=== PATIENT | male | born 1970 | race Caucasian/White ===

== ENCOUNTER 2022-08-24 17:31 | Emergency (ER) | payer OTHER, SELFPAY ==
[2022-08-24 17:38] VITALS: BP 147/96; PULSE 77; RESP 16; TEMP 37.2; O2SAT 99
--- NOTE | 2022-08-24 17:59 | ECG_ITS ---
Measurements Intervals [place] Rate: 65 P: 41 MA: 172 QRS: 17 QRSD: 90 T: 45 QT: 369 QTc: 385 Interpretive Statements SINUS RHYTHM Normal electrocardiogram NO PREVIOUS ECG AVAILABLE FOR COMPARISON Electronically Signed On 08-25-2022 19:53:42 DIRECTOR PHONE by Travis Arevalo M.D.
--- NOTE | 2022-08-24 18:56 | ED.CHESTPAIN ---
HPI - Chest Pain General Chief Complaint: Chest Pain Stated Complaint: CHEST PAIN Time Seen by Provider: 08/24/22 17:40 Source: patient Mode of arrival: ambulatory Limitations: no limitations History of Present Illness HPI narrative: Mr. Collazo is a 51-year-old male patient presenting to the clinic today with complaints of left-sided /midsternal chest pain x1 hour. He reports that the pain is a dull ache. He states that he was working around the house but no heavy lifting when this pain occurred. Says he has been under a lot of stress here in lately as some of his family members have some medical problems. He denies any history of any cardiac problems however he has had a history of pulmonary hypertension but he has seen a excel developer for this and thinks that he may have been misdiagnosed. He is a former smoker states he smoked for 15 years about half pack per day. No history of hypertension or diabetes. Feeling medication he is currently taking as terbinafine for toenail fungus. He reports some mild shortness of breath with the pain but denies any radiation of the pain. He denies any upper respiratory symptoms, headache, or dizziness. Denies any fever or chills. Denies any change in pain with respirations. Reports he was lifting and moving some scrap metal yesterday. Related Data Home Medications Medication Instructions Recorded Confirmed terbinafine HCl 250 mg tablet 250 mg PO DAILY 08/24/22 08/24/22 Allergies Allergy/AdvReac Type Severity Reaction Status Date / Time No Known Allergies Allergy Verified 08/24/22 17:54 Review of Systems Review of Systems: Pertinent positives per HPI. Patient denies any fever, chills, rash, headache, visual changes, dizziness, cough, runny nose, sore throat, shortness of breath, chest pain, palpitations, nausea, vomiting, diarrhea, constipation, abdominal pain, or any urinary issues. [facility] Past Medical History Medical History Cellulitis of right lower extremity Elevated blood pressure reading Encounter for screening for cardiovascular disorders Fatigue Lumbar back pain Obesity, unspecified Other diseases of lung, not elsewhere classified Other psoriasis and similar disorders Pulmonary hypertension Sacroiliitis, not elsewhere classified Syncope and collapse Tobacco use Varicose veins of both lower extremities Vitamin D deficiency disease Family History Family History Father Diabetes mellitus Family history of hypercholesterolemia Mother Family history of hypercholesterolemia Other Hypertension Social History Social History Smoking status: Former smoker Smoking end date: 09/03/17 Comments At the time of my signature, I reviewed and agree with the nursing past medical, surgical, social, and family history. There is no relevant family history pertinent to the patient complaint. Exam Narrative: General: Well-developed, well nourished, in no apparent distress Head: Normocephalic, atraumatic. Chest: Even rise and fall of chest wall, no bruising or swelling noted, mild tenderness to palpation over the left upper chest wall Cardio: Regular rate and rhythm, s1 and s2 normal, no murmur appreciated. Resp: Clear to auscultation bilaterally, no rhonchi, rales, wheezing or rubs. Extremities: No deformity, no edema, no cyanosis, capillary refill less than 2 seconds, peripheral pulses palpable and strong. Integumentary: [place], warm, and dry, intact without lesion, no rashes. Course Course Emergency Course: Portions of this record may have been created with voice recognition software. Level of Care: Express Care Visit Vital Signs Vital signs: Vital Signs Temperature 37.2 C 08/24/22 17:38 Pulse Rate 77 08/24/22 17:38 Respiratory Rate 16 08/24/22 17:38 Blood Pressure
== END 2022-08-24 18:29 | disposition short-term general hospital (02) ==
PROVIDERS: Emergency Provider Nurse Practitioner Family; PCP Emergency Medicine
DX: R07.9 Chest pain, unspecified (principal); Z87.891 Personal history of nicotine dependence; E66.9 Obesity, unspecified; Z68.29 Body mass index [BMI] 29.0-29.9, adult
CPT/HCPCS: 93005; 99213; G0463

== ENCOUNTER 2022-08-24 18:45 | Emergency (ER) | payer OTHER, SELFPAY ==
--- NOTE | ~2022-08-24 | XR_ITS ---
XR chest 2V DATE: 08/24/2022 19:30 INDICATION: Chest pain TECHNIQUE: PA and lateral views COMPARISON: None FINDINGS: There is moderately prominent dextroscoliosis of the mid and lower thoracic spine. There is degenerative spurring of the thoracic spine. Levoscoliosis and degenerative change of the lumbar spi ne Normal heart size. No hilar or mediastinal enlargement. No pulmonary infiltrate or consolidation, pleural effusion or pulmonary vascular congestion or pneumo thorax. IMPRESSION: No active cardiopulmonary disease Scoliosis and degenerative change of the thoracic and lumbar spine Reviewed, dictated and finalized at location A. [employer]EL[employer]
--- NOTE | 2022-08-24 18:47 | ECG_ITS ---
Measurements Intervals [place] Rate: 65 P: 37 GA: 175 QRS: -5 QRSD: 108 T: 24 QT: 388 QTc: 405 Interpretive Statements SINUS RHYTHM BASELINE ARTIFACT NOTED GROSSLY NORMAL ECG COMPARED TO ECG 08/24/2022 17:56:20 NO SIGNIFICANT CHANGE Electronically Signed On 08-25-2022 19:54:51 BALLISTICS PROFESSOR by Travis Arevalo M.D.
[2022-08-24 18:48] VITALS: BP 166/85; PULSE 65; RESP 16; TEMP 36.4; O2SAT 100
[2022-08-24 19:03] LABS: Basophils Percent Auto 0.6 % (0.2-1.2); Eosinophils Absolute Auto 0.2 K/mm3 (0-0.3); Eosinophils Percent Auto 3.3 % (0-4.4); Hematocrit 40.6 % (42.0-52.0); Hemoglobin 14.2 g/dL (14.0-18.0); Immature Granulocyte Absolute 0.04 K/mm3 (0.00-0.031); Immature Granulocyte Percent A 0.8 % (0-0.5); Lymphocytes Absolute Auto 1.56 K/mm3 (0.9-3.2); Lymphocytes Percent Auto 30.7 % (18.3-44.2); Mean Corpuscular Hemoglobin 31.3 pg (26-34); Mean Corpuscular Volume 89.4 fl (80-100); Mean Platelet Volume 8.8 fl (7.4-10.4); Monocytes Absolute Auto 0.4 K/mm3 (0.1-0.6); Monocytes Percent Auto 6.9 % (2.6-8.5); Neutrophils Absolute Auto 2.9 K/mm3 (1.3-6.7); Neutrophils Percent Auto 57.7 % (45.5-73.1); Platelet Count Result 238 k/mm3 (150-375); Red Blood Count 4.54 M/mm3 (4.6-6.20); Red Cell Distribution Width 11.9 % (11.5-14.5); White Blood Count 5.1 K/mm3 (4.5-10.0)
[2022-08-24 19:14] LABS: Alanine Aminotransferase 30 U/L (6-50); Albumin Level 4.7 g/dL (3.5-5.1); Alkaline Phosphatase 78 U/L (38-126); Anion Gap 5 mmol/L (8-16); Aspartate Amino Transferase 33 U/L (17-59); Bilirubin,Total 0.3 mg/dL (0.2-1.3); Blood Urea Nitrogen 8 mg/dL (9-20); Carbon Dioxide 30 mmol/L (22-30); Chloride 99 mmol/L (98-107); Estimated CRCL calculation 121 ml/min; Estimated Glomerular Filt Rate > 60; Glucose 100 mg/dL (65-110); Lipase 85 U/L (23-300); Potassium 3.9 mmol/L (3.4-5.0); Sodium 134 mmol/L (137-145)
--- NOTE | 2022-08-24 19:18 | ED.CHESTPAIN ---
HPI - Chest Pain General Chief Complaint: Chest Pain Stated Complaint: chest pain Time Seen by Provider: 08/24/22 19:16 Source: patient Mode of arrival: ambulatory Limitations: no limitations History of Present Illness HPI narrative: 51 years old white female [place] emergency [place] left upper chest pressure type discomfort started while shopping. Patient denies radiation of pain, shortness of breath, lightheadedness, dizziness or back pain. Patient is healthy otherwise, not on any medications, does not smoke or uses drugs, drinks occasionally, no family history of coronary artery disease. Patient reports quite a bit of stress/anxiety lately. 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 Patient denies aggravating or relieving factors. He denies any fever, chills, nausea, vomiting. Chest pain started at 3 PM, was 5 out of 10, currently 2 out of 10. I saw the patient 4-1/2-hour after the beginning of his symptoms Related Data Home Medications Medication Instructions Recorded Confirmed terbinafine HCl 250 mg tablet 250 mg PO DAILY 08/24/22 08/24/22 Allergies Allergy/AdvReac Type Severity Reaction Status Date / Time No Known Allergies Allergy Verified 08/24/22 17:54 Review of Systems Review of Systems: All systems reviewed & are unremarkable except as noted in HPI and below PMFSH Past Medical History Medical History Cellulitis of right lower extremity Elevated blood pressure reading Encounter for screening for cardiovascular disorders Fatigue Lumbar back pain Obesity, unspecified Other diseases of lung, not elsewhere classified Other psoriasis and similar disorders Pulmonary hypertension Sacroiliitis, not elsewhere classified Syncope and collapse Tobacco use Varicose veins of both lower extremities Vitamin D deficiency disease Family History Family History Father Diabetes mellitus Family history of hypercholesterolemia Mother Family history of hypercholesterolemia Other Hypertension Social History Social History Smoking status: Former smoker Smoking end date: 09/03/17 Exam Narrative: General appearance: Well-developed, well-nourished Skin: Normal color Head: Normocephalic, nontraumatic Eyes: Clear conjunctiva ENT: Oropharynx normal, ears normal, nose normal Neck: Supple, nontender Chest and respiratory: Airway patent, no respiratory distress, no accessory muscle use, mild tenderness to left upper chest with palpation, no bruises, no swelling or rash Heart: Regular rate/rhythm Abdomen: Soft, nontender, no organomegaly, quiet bowel sounds Vascular: Normal peripheral pulses, normal capillary refill. 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 Work-up today showed no significant finding to explain patient condition, anxiety related symptoms is my concern. Vital Signs Vital signs: Vital Signs Temperature 36.4 C L 08/24/22 18:48 Pulse Rate 65 08/24/22 18:48 Respiratory Rate 16 08/24/22 18:48 Blood Pressure 166/85 H 08/24/22 18:48 Pulse Oximetry 100 08/24/22 18:48 Oxygen Delivery Room Air 08/24/22 18:48 Temperature 36.8 C 08/24/22 20:55 Pulse Rate 59 L 08/24/22 20:55 Respiratory Rate 18 08/24/22 20:55 Blood Pressure 142/67 H 08/24/22 20:55 Pulse Oximetry 99 08/24/22
[2022-08-24 19:21] LABS: INR 0.9; Prothrombin Time 12.2 Seconds (11.1-14.7)
[2022-08-24 19:23] LABS: Partial Thromboplastin Time 27.7 SECONDS (22.3-36.8)
[2022-08-24 19:25] LABS: Troponin I < 0.012 ng/mL (0.000-0.034)
[2022-08-24] MEDS: ASPIRIN 81 MG CHEWABLE TABLET 324 MG PO (19:34)
[2022-08-24 20:55] VITALS: BP 142/67; PULSE 59; RESP 18; TEMP 36.8; O2SAT 99
[2022-08-24] MEDS: LORazepam INJ (*CRX) 2 MG/ML VIAL 1 MG IV PUSH (21:14)
[2022-08-24 22:51] LABS: Troponin I < 0.012 ng/mL (0.000-0.034)
== END 2022-08-24 23:10 | disposition home or self-care (01) ==
PROVIDERS: Emergency Medicine; Emergency Provider Emergency Medicine; PCP Emergency Medicine
DX: R07.89 Other chest pain (principal); F41.9 Anxiety disorder, unspecified; E66.9 Obesity, unspecified; Z68.33 Body mass index [BMI] 33.0-33.9, adult; I27.20 Pulmonary hypertension, unspecified; E55.9 Vitamin D deficiency, unspecified; Z87.891 Personal history of nicotine dependence; M41.9 Scoliosis, unspecified; M47.814 Spondylosis without myelopathy or radiculopathy, thoracic region; M47.816 Spondylosis without myelopathy or radiculopathy, lumbar region
CPT/HCPCS: 36415; 71046; 80053; 83690; 84484; 85025; 85610; 85730; 93005; 96374; 99284; A9270; J2060

== ENCOUNTER → 2023-04-30 11:33 | Outpatient (CLI) | payer OTHER, SELFPAY ==
--- NOTE | ~2023-04-30 | XR_ITS ---
Right Shoulder Technique: AP and axillary views were obtained. Clinical History: Pain Findings: No fracture or dislocation is seen. Osseous alignment is anatomic. The glenohumeral and acr omioclavicular joint spaces are preserved. Soft tissues are unremarkable. Impression: Unremarkable right shoulder radiographs. Reviewed, dictated and finalized at [facility]. Impression: Unremarkable right shoulder radiographs.
== END ==
PROVIDERS: PCP Emergency Medicine; Visit Provider Emergency Medicine
DX: M25.511 Pain in right shoulder (principal)
CPT/HCPCS: 73030

== ENCOUNTER 2023-07-03 10:39 | Emergency (ER) | payer OTHER, SELFPAY ==
--- NOTE | 2023-07-03 10:41 | ED.DENTAL ---
HPI - Dental/Oral General Chief complaint: Dental/Oral Stated complaint: Rt Facial Pain Time Seen by Provider: 07/03/23 10:41 Source: patient Mode of arrival: ambulatory Limitations: no limitations History of Present Illness HPI Narrative: Mr. Collazo is a 52-year-old male patient presenting to the clinic today with complaints of right lower dental pain x2 days. He reports he attempted to get into his dentist but cannot get in for a couple weeks. Is concerned that he may have a dental infection. No fever or chills. Related Data Allergies Allergy/AdvReac Type Severity Reaction Status Date / Time No Known Allergies Allergy Verified 02/21/23 14:59 Review of Systems Review of Systems: Pertinent positives per HPI. Patient denies any fever, chills, rash, headache, visual changes, dizziness, cough, runny nose, sore throat, shortness of breath, chest pain, palpitations, nausea, vomiting, diarrhea, constipation, abdominal pain, or any urinary issues. PMFSH Past Medical History Medical History Cellulitis of right lower extremity Elevated blood pressure reading Encounter for screening for cardiovascular disorders Fatigue Lumbar back pain Obesity, unspecified Other diseases of lung, not elsewhere classified Other psoriasis and similar disorders Pulmonary hypertension Sacroiliitis, not elsewhere classified Syncope and collapse Tobacco use Varicose veins of both lower extremities Vitamin D deficiency disease Family History Family History Father Diabetes mellitus Family history of hypercholesterolemia Mother Family history of hypercholesterolemia Other Hypertension Social History Social History Smoking status: Former smoker Smoking end date: 09/03/17 Alcohol intake: current Alcohol use details: occasionally Comments At the time of my signature, I reviewed and agree with the nursing past medical, surgical, social, and family history. There is no relevant family history pertinent to the patient complaint. Exam Narrative: General: Well-developed, well nourished, in no apparent distress Head: Normocephalic, atraumatic Eyes: Pupils equally round and reactive to light bilaterally, EOM intact, sclera and conjunctive clear, no discharge, lids normal Ears: TMs intact and clear, ear canals clear, no drainage, grossly hearing normal. Nose: Nares patent, no discharge, no inflammation, no sinus tenderness. Mouth: Oropharynx without lesions or masses, poor dentition, MMM. Dental pain to right lower 1st molar-1st molar is fractured, redness and swelling noted to the gums Neck: Supple, trachea midline, no enlargement of anterior or posterior cervical nodes, no thyroid masses or goiter palpable. Cardio: Regular rate and rhythm, s1 and s2 normal, no murmur appreciated. Resp: Clear to auscultation bilaterally anteriorly and posteriorly, no rhonchi, rales, wheezing or rubs Course Course Emergency Course: Portions of this record may have been created with voice recognition software. Level of Care: Express Care Visit Vital Signs Vital signs: Vital signs reviewed MDM - Dental/Oral MDM Narrative Medical decision making narrative: At the time of visit patient is resting comfortably on the exam table. I suspect patient has a possible dental infection. Will send in prescription for amoxicillin and discussed use of Tylenol Motrin as needed for pain. Supportive measures were discussed with the patient he voiced understanding discharge instructions and agrees to treatment plan. Differential Diagnosis Differential diagnosis: Likely gingival abscess, dental caries, toothache, dental abscess and fracture of tooth Discharge Plan Discharge Clinical Impression: Pain, dental Patient Disposition: Hospice - Home Condition: Stable In
[2023-07-03 10:51] VITALS: BP 177/94; PULSE 68; RESP 18; TEMP 36.1; O2SAT 100
== END 2023-07-03 11:01 | disposition home or self-care (01) ==
PROVIDERS: Emergency Provider Nurse Practitioner Family; PCP Emergency Medicine
DX: K08.89 Other specified disorders of teeth and supporting structures (principal); Z87.891 Personal history of nicotine dependence; E66.9 Obesity, unspecified; Z68.31 Body mass index [BMI] 31.0-31.9, adult
CPT/HCPCS: 99213; G0463

== ENCOUNTER 2023-07-03 21:22 | Emergency (ER) | payer OTHER, SELFPAY ==
[2023-07-03 21:28] VITALS: BP 197/100; PULSE 80; RESP 14; TEMP 36.7; O2SAT 100
--- NOTE | 2023-07-03 23:09 | ED.GENADULT ---
HPI - General Adult General Chief complaint: Dental/Oral Stated complaint: Dental infection/pain Time Seen by Provider: 07/03/23 22:48 History of Present Illness HPI narrative: This is a 52-year-old male presenting ED with dental pain. Patient has poor dentition with multiple teeth rotted below the gumline. Patient went to urgent care today and was given pain medication and antibiotics but his pain was still to intense and he can emergency department for evaluation. Patient denies fever chills, shortness of breath or swelling in his mouth. Related Data Allergies Allergy/AdvReac Type Severity Reaction Status Date / Time No Known Allergies Allergy Verified 02/21/23 14:59 [facility] Past Medical History Medical History Cellulitis of right lower extremity Elevated blood pressure reading Encounter for screening for cardiovascular disorders Fatigue Lumbar back pain Obesity, unspecified Other diseases of lung, not elsewhere classified Other psoriasis and similar disorders Pulmonary hypertension Sacroiliitis, not elsewhere classified Syncope and collapse Tobacco use Varicose veins of both lower extremities Vitamin D deficiency disease Family History Family History Father Diabetes mellitus Family history of hypercholesterolemia Mother Family history of hypercholesterolemia Other Hypertension Social History Social History Smoking status: Former smoker Smoking end date: 09/03/17 Alcohol intake: current Alcohol use details: occasionally Exam Narrative: APPEARANCE: No apparent distress. Head: patient is missing most of his molars on the top bottom. His incisors are significantly decayed no evidence of abscess. EYES: EOMI, NOSE: Atraumatic NECK: Trachea midline RESPIRATORY: No increased rate of breathing CARDIOVASCULAR: RRR, ABDOMINAL: Non-distended MUSCULOSKELETAl: No obvious deformities NEURO: Alert. Moving 4/4 extremities SKIN:: Warm, dry. Normal color PSYCHIATRIC: Normal affect Course Vital Signs Vital signs: Vital Signs Temperature 98.0 F 07/03/23 21:28 Pulse Rate 80 07/03/23 21:28 Respiratory Rate 14 07/03/23 21:28 Blood Pressure 197/100 H 07/03/23 21:28 Pulse Oximetry 100 07/03/23 21:28 Oxygen Delivery Room Air 07/03/23 21:28 Temperature 98.0 F 07/03/23 21:28 Pulse Rate 80 07/03/23 21:28 Respiratory Rate 14 07/03/23 21:28 Blood Pressure 197/100 H 07/03/23 21:28 Pulse Oximetry 100 07/03/23 21:28 Oxygen Delivery Room Air 07/03/23 21:28 Procedures Nerve Block Nerve Block 1: Nerve block date: 07/03/23 Time out performed: Yes Local Anesthetic: bupivacaine 0.25% Amount of anesthesia used (mL): 3 Side: right Intraoral Nerve Block: inferior alveolar Procedure Successful: Yes Patient Tolerated Procedure: well Complications: none Medical Decision Making MDM Narrative Medical decision making narrative: -Course: 52-year-old presenting with dental pain. Patient given oxycodone and an inferior alveolar nerve block was performed. Patient be discharged follow-up with dentist. 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
--- NOTE | 2023-07-03 23:11 | PC.NURSE ---
This RN assumed care of patient. This RN took patient report from STEPHANIE Riggins.
[2023-07-03] MEDS: oxyCODONE HCL (*CRX) 5 MG TAB IR 10 MG PO (23:30)
[2023-07-03 23:48] VITALS: BP 186/86; PULSE 67; RESP 18; O2SAT 98
== END 2023-07-03 23:50 | disposition home or self-care (01) ==
PROVIDERS: Emergency Provider Emergency Medicine; PCP Emergency Medicine
DX: K08.89 Other specified disorders of teeth and supporting structures (principal); I27.20 Pulmonary hypertension, unspecified; J98.4 Other disorders of lung; E55.9 Vitamin D deficiency, unspecified; E66.9 Obesity, unspecified; L40.8 Other psoriasis; Z87.891 Personal history of nicotine dependence
CPT/HCPCS: 64999; 99283; A9270

== ENCOUNTER 2024-05-18 19:58 | Emergency (ER) | payer OTHER, SELFPAY ==
[2024-05-18 20:03] VITALS: BP 153/93; PULSE 64; RESP 16; TEMP 36.5; O2SAT 100
--- NOTE | 2024-05-18 20:15 | ED.GENADULT ---
HPI - General Adult General Chief complaint: Dental/Oral Stated complaint: Left Side Jaw Injury Time Seen by Provider: 05/18/24 20:06 Source: patient and RN notes reviewed Mode of arrival: ambulatory Limitations: no limitations History of Present Illness HPI narrative: Patient presents today complaining of some mild pain to the left lateral neck. Approximately 1 hour prior to arrival patient was umpiring a teenage baseball game, wearing appropriate pads and facial mask, and was struck in the mask by the baseball which ricocheted onto the neck. Patient did finish the game and states the initial pain has since resolved. Denies any headache, dizziness or lightheadedness, neck pain, vision changes, nausea or vomiting. He only reports some very mild pain to the left anterolateral neck. Reports he wants to make sure there is no issues with his carotid artery. Related Data Home Medications Medication Instructions Recorded Confirmed No Home Medications 05/18/24 05/18/24 Allergies Allergy/AdvReac Type Severity Reaction Status Date / Time No Known Allergies Allergy Verified 10/19/23 08:46 Review of Systems Review of Systems: CONSTITUTIONAL: Denies body aches, fever, chills, or sweats. EYES: Denies visual changes, redness, or discharge. ENT: Denies rhinorrhea, congestion, sore throat, or otalgia. CARDIOVASCULAR: Denies chest pain, palpitations, or edema. RESPIRATORY: Denies cough or dyspnea. GASTROINTESTINAL: Denies abdominal pain, nausea, vomiting, or diarrhea. GENITOURINARY: Denies dysuria or hematuria. SKIN: Denies rash, itching, or wounds. MUSCULOSKELETAL: Denies back pain, joint pain, or myalgia.+ left lateral neck injury NEUROLOGIC: Denies headache, numbness, tingling, or weakness. PSYCH: Denies depression or anxiety. [facility] Past Medical History Medical History Cellulitis of right lower extremity Elevated blood pressure reading Encounter for screening for cardiovascular disorders Fatigue Lumbar back pain Obesity, unspecified Other diseases of lung, not elsewhere classified Other psoriasis and similar disorders Pulmonary hypertension Sacroiliitis, not elsewhere classified Syncope and collapse Tobacco use Varicose veins of both lower extremities Vitamin D deficiency disease Family History Family History Father Diabetes mellitus Family history of hypercholesterolemia Mother Family history of hypercholesterolemia Other Hypertension Social History Social History Smoking status: Former smoker Smoking end date: 09/03/17 Alcohol intake: current Alcohol use details: occasionally Do You Feel Safe in your Home?: Yes Lack of Transportation: No Lack of Food: Never True Current Housing: I Have Housing Concerned About Future Housing: No Difficulty Paying Gas/Electric Bills: No Difficulty Paying for Meds: No Currently Unemployed: No Education: Master's Degree or Higher Difficulty w/ Childcare or Family Care: No Comments At time of signature, I have reviewed and agree with nursing past medical, surgical, social and family history unless otherwise noted. Please see nursing chart for further information. There is no relevant family history pertinent to the presenting complaint Exam Narrative: GENERAL: Well-appearing, well-nourished, and in no acute distress. HEAD: Normocephalic, atraumatic. EYES: EOMI. PERRL. No redness or drainage. Conjunctivae normal. ENT: Mucous membranes pink and moist. NECK: Normal AROM. Faint area of redness to the left anterolateral soft tissue neck with very mild tenderness to same. No edema, ecchymosis. No bony tenderness to the neck or bilateral cervical paraspinal muscles. Full range of motion of the neck without pain. Full range of motion of the jaw without pain
== END 2024-05-18 20:16 | disposition home or self-care (01) ==
PROVIDERS: Emergency Provider Nurse Practitioner; PCP Emergency Medicine
DX: S10.93XA Contusion of unspecified part of neck, initial encounter (principal); W21.03XA Struck by baseball, initial encounter; E66.9 Obesity, unspecified; Z68.32 Body mass index [BMI] 32.0-32.9, adult; I27.20 Pulmonary hypertension, unspecified; Z87.891 Personal history of nicotine dependence
CPT/HCPCS: 99212; G0463

== ENCOUNTER 2024-08-12 16:06 | Emergency (ER) | payer OTHER, SELFPAY ==
--- NOTE | 2024-08-12 16:19 | ED_ITS ---
HPI - URI/Sore Throat General Chief Complaint: Upper Respiratory Infection Stated Complaint: cough/ congestion/bodyache Time Seen by Provider: 08/12/24 17:10 Source: patient and RN notes reviewed Mode of arrival: ambulatory Limitations: no limitations History of Present Illness HPI Narrative: 53-year-old male presents with concern for 6 day history of cough, body aches, chest congestion. Reports he has been taking [id number] cold medicine without relief. He denies fever. MD elicited complaint: cough Related Data Allergies Allergy/AdvReac Type Severity Reaction Status Date / Time No Known Allergies Allergy Verified 08/12/24 16:40 Review of Systems Review of Systems: CONSTITUTIONAL: Denies malaise, chills, sweats, or fever. EYES: Denies visual changes, redness, or discharge. ENT: Reports rhinorrhea, congestion your denies sinus pain, otalgia and sore throat. CARDIOVASCULAR: Denies chest pain, palpitations, or edema. RESPIRATORY: Reports cough and chest congestion. Reports exertional dyspnea. GASTROINTESTINAL: Denies abdominal pain, nausea, vomiting, diarrhea SKIN: Denies rash or itching. MUSCULOSKELETAL: Reports myalgia. NEUROLOGIC: Denies headache. All systems reviewed & are unremarkable except as noted in HPI and below PMFSH Past Medical History Medical History Cellulitis of right lower extremity Elevated blood pressure reading Encounter for screening for cardiovascular disorders Fatigue Lumbar back pain Obesity, unspecified Other diseases of lung, not elsewhere classified Other psoriasis and similar disorders Pulmonary hypertension Sacroiliitis, not elsewhere classified Syncope and collapse Tobacco use Varicose veins of both lower extremities Vitamin D deficiency disease Family History Family History Father Diabetes mellitus Family history of hypercholesterolemia Mother Family history of hypercholesterolemia Other Hypertension Social History Social History Smoking status: Former smoker Smoking end date: 09/03/17 Alcohol intake: current Alcohol use details: occasionally Do You Feel Safe in your Home?: Yes Lack of Transportation: No Lack of Food: Never True Current Housing: I Have Housing Concerned About Future Housing: No Difficulty Paying Gas/Electric Bills: No Difficulty Paying for Meds: No Currently Unemployed: No Education: Master's Degree or Higher Difficulty w/ Childcare or Family Care: No Comments At time of signature, agree with nursing past medical, surgical, social and family history. There is no relevant family history pertinent to the presenting complaint Exam Narrative: GENERAL: Well-appearing, well-nourished, and in no acute distress. HEAD: Normocephalic EYES: PERRLA, conjunctivae clear ENT: Nares clear. Mucous membranes moist. TM pearly holt with dull light reflex bilaterally; no tragal tenderness. Oropharynx not erythematous without lesions. Tonsils not enlarged and without exudate, no drooling, no hoarseness, no trismus, uvula midline. NECK: Supple. No lymphadenopathy CHEST: Clear to auscultation, breath sounds equal. No wheezing, rhonchi, rales, or stridor. No respiratory distress, speaks in full sentences. HEART: Regular rate and rhythm. No murmur heard. SKIN: Warm, dry, no rash. NEURO: Alert and oriented x3. PSYCH: Normal mood and affect Course Course Emergency Course: Patient is aware of diagnosis, understands and agrees to treatment plan. Anticipatory guidance given. Patient agrees to follow-up as directed and is aw are of reasons to seek care at the emergency department. Portions of this record may have been created with voice recognition software Level of Care: Express Care Visit Vital Signs Vital signs: Reviewed. MDM - URI/Sore Throat MDM Narrative Medical decision making narrative: Differential diagnosis considered: Braun virus, strep pharyngitis, allergic rhinitis, upper respiratory tract infection, sinusitis, rhinosinusitis, nasopharyngitis. viral pharyngitis, otitis media, otitis externa, pneumonia, bronchitis, viral cough syndrome, viral syndrome, and influenza. Exam findings show no acute concerns or changes; patient is non-toxic appearing and is in no distress. Patient is appropriate for outpatient treatment and follow-up. Lab Data Attestation: I reviewed the patient's lab results. Critical Care Time Critical Care Time Critical Care Time: No Discharge Plan Discharge Clinical Impression: Lower respiratory tract infection Patient Disposition: Home, Self-Care Condition: Stable Instructions: Antibiotic Form, Acute Bronchitis (ED) Additional Instructions: Take medication as directed Recommend antihistamine such as Benadryl at night time and Zyrtec or Naima during the day Cough syrup may cause drowsiness; avoid driving or take it at night time. Also, recommend symptomatic treatment includes: rest, fluids, and increase humidity of the air at home. Recommend Acetaminophen as directed on the bottle to reduce fever, pain, headache. Avoid smoking/second-hand smoke. Please schedule a follow-up visit with your personal physician for further evaluation and treatment within 3-5days. Including recheck and discussion of your blood pressure. If your symptoms persist, change or worsen significantly before you can contact your personal physician then please, without delay, go to the emergency department for further evaluation. Patient Language: Croatian Prescriptions: New promethazine-DM 6.25-15 mg/5 mL syrup 5 ml PO Q4-6H PRN (Reason: cough) Qty: 120 0RF azithromycin [Zithromax Z-Kody] 250 mg tablet See Rx Instructions .ROUTE .COMPLEX Qty: 6 0RF Rx Instructions: take 500 mg today (day 1), then 250 mg for 4 days (days 2-5) methylprednisolone [Medrol (Kody)] 4 mg tablets,dose pack See Rx Instructions .ROUTE .COMPLEX Qty: 21 0RF Rx Instructions: orally per package directions Follow-up/Referrals: Travis Mondragon MD [Primary Care Provider] -
[2024-08-12 16:30] VITALS: BP 164/82; PULSE 69; RESP 18; TEMP 36.4; O2SAT 98
[2024-08-12 16:50] LABS: EDINFLUASCREEN Negative (Negative); EDINFLUBSCREEN Negative (Negative)
== END 2024-08-12 17:19 | disposition home or self-care (01) ==
PROVIDERS: Emergency Provider Nurse Practitioner; PCP Emergency Medicine
DX: J22 Unspecified acute lower respiratory infection (principal); Z87.891 Personal history of nicotine dependence; E66.9 Obesity, unspecified; I27.20 Pulmonary hypertension, unspecified
CPT/HCPCS: 87804; 99213; G0463